=== PATIENT | female | born 1945 | race Caucasian/White ===

== ENCOUNTER 2020-04-05 11:59 | Outpatient (CLI) | payer MEDICARE, SELFPAY ==
[2020-04-05 12:38] LABS: Alanine Aminotransferase 31 U/L (4-35); Aspartate Amino Transferase 37 U/L (14-36)
== END 2020-04-05 12:00 | disposition home or self-care (01) ==
LOC: ANHLAB 12:05
PROVIDERS: PCP Family Medicine; Visit Provider Podiatrist Foot & Ankle Surgery
DX: B35.1 Tinea unguium (principal)
CPT/HCPCS: 36415; 84450; 84460

== ENCOUNTER 2020-07-05 11:01 | Outpatient (CLI) | payer MEDICARE, SELFPAY ==
[2020-07-05 11:50] LABS: Alanine Aminotransferase 22 U/L (4-35); Aspartate Amino Transferase 38 U/L (14-36)
== END 2020-07-05 11:02 | disposition home or self-care (01) ==
PROVIDERS: PCP Family Medicine; Visit Provider Podiatrist Foot & Ankle Surgery
DX: B35.1 Tinea unguium (principal)
CPT/HCPCS: 36415; 84450; 84460

== ENCOUNTER → 2021-10-26 10:57 | Outpatient (CLI) | payer MEDICARE, BC, SELFPAY ==
--- NOTE | ~2021-10-26 | DEXA_ITS ---
Bone Density Report Name: MICHELLE VAUGHAN Age: 76 Sex: Female Ethnicity: White Date of : 1945 Indication: postmenopausal; screening for osteoporosis; height loss; hysterectomy; Referring Provider: TESS PINEDA Study: Bone densitometry was performed. Exam Date: October 26, 2021 Accession number: [id number] Bone Density: Region BMD T-score Z-score Classification AP Spine (L1-L4) 0.798 -2.3 0.1 Osteopenia Femoral Neck (Left) 0.653 -1.8 0.3 Osteopenia Total Hip (Left) 0.725 -1.8 -0.1 Osteopenia Femoral Neck (Right) 0.765 -0.8 1.3 Normal Total Hip (Right) 0.702 -2.0 -0.2 Osteopenia Total Hip Mean 0.714 -1.9 -0.2 Osteopenia World Health Organization criteria for BMD impression classify patients as: Normal (T-score at or above -1.0), Osteopenia (T-score between -1.0 and -2.5), or Osteoporosis (T-score at or below -2.5). 10-year Fracture Risk(1): Major Osteoporotic Fracture 11% Hip Fracture 2.4% Reported Risk Factors: [place] (), Neck BMD=0.653, BMI=29.4 (1) FRAX(R) Version 3.08. Fracture probability calculated for an untreated patient. Fracture probability may be lower if the patient has received treatment. Clinical Information Provided by Patient: Has used the following medications: Vitamin D, Calcium, MTV Has the following medical conditions: Hysterectomy Patient maximum height was 66.5 Menopause Age: 30 No regular weight bearing exercise Drinks caffeinated beverages Onset of menses at age 15 Number of children 2 Impression: The patient has low bone mass, based on the Total Spine T-score. The patient has an estimated ten-year risk of hip fracture of 2.4% and an estimated ten-year risk of major fracture of 11%, based on the WHO FRAX algorithm. Discussion: BONE DENSITY IS LOW AT ONE OR MORE SKELETAL SITES. This patient's lowest T-score is low at one or more skeletal sites. It meets the World Health Organization's (WHO) criteria for ?low bone mass? (T-score between -1.0 and -2.5). The patient's 10-year risk of fracture as calculated by FRAX is less than the threshold where pharmacological therapy is recommended by the National Osteoporosis Foundation (NOF). However, all treatment decisions require clinical judgment and consideration of individual patient factors, including patient preferences, comorbidities, previous drug use, risk factors not captured in the FRAX model (e.g., frailty, falls, vitamin D deficiency, increased bone turnover, interval significant decline in bone density) and possible under or overestimation of fracture risk by FRAX. The patient should follow a healthful lifestyle (good nutrition with adequate calcium and vitamin D, and appropriate weight-bearing exercise). Follow-Up: Consider repeating this study in 2 to 3 years to reassess this patient's statu
--- NOTE | ~2021-10-26 | MM_ITS ---
EXAMINATION: MM screening gaurang BI w yosef HISTORY: Screening mammogram TECHNIQUE: Craniocaudal and mediolateral oblique 3-D tomosynthesis images were obtained and synthetic 2-D images were generated. CAD analysis was submitted and interpreted. COMPARISON: 05/09/2015 bilateral screening mammogram BREAST PARENCHYMAL COMPOSITION: There are scattered areas of fibroglandular density. FINDINGS: There is no evidence of suspicious mass, calcification, or architectural distortion to sugg est malignancy in either breast. There has been no suspicious interval change. IMPRESSION: 1. No mammographic evidence of malignancy. 2. Recommend routine screening mammography in one year. BI-RADS Category 1: Negative Reviewed, dictated and finalized at location A.
== END ==
PROVIDERS: PCP Family Medicine; Visit Provider Family Medicine
DX: Z12.31 Encounter for screening mammogram for malignant neoplasm of breast (principal); Z78.0 Asymptomatic menopausal state; M85.88 Other specified disorders of bone density and structure, other site; M85.852 Other specified disorders of bone density and structure, left thigh; M85.851 Other specified disorders of bone density and structure, right thigh
CPT/HCPCS: 77063; 77067; 77080

== ENCOUNTER 2022-01-24 11:47 | Outpatient (CLI) | payer MEDICARE, SELFPAY ==
[2022-01-24 19:00] LABS: Alanine Aminotransferase 29 U/L (6-35); Albumin Level 4.4 g/dL (3.5-5.1); Alkaline Phosphatase 108 U/L (38-126); Anion Gap 7 mmol/L (8-16); Aspartate Amino Transferase 39 U/L (14-36); Bilirubin,Total 0.6 mg/dL (0.2-1.3); Blood Urea Nitrogen 20 mg/dL (7-17); Calcium 10.5 mg/dL (8.4-10.2); Carbon Dioxide 32 mmol/L (22-30); Chloride 105 mmol/L (98-107); Estimated Glomerular Filt Rate > 60; Glucose 99 mg/dL (65-110); Potassium 3.4 mmol/L (3.4-5.0); Sodium 144 mmol/L (137-145)
== END 2022-01-24 11:48 | disposition home or self-care (01) ==
LOC: ANHGOSHLAB 11:49
PROVIDERS: PCP Family Medicine; Visit Provider Physician Assistant
DX: E83.52 Hypercalcemia (principal)
CPT/HCPCS: 36415; 80053

== ENCOUNTER 2024-08-29 13:35 | Outpatient (CLI) | payer MEDICARE, SELFPAY ==
--- NOTE | ~2024-08-29 | US_ITS ---
EXAMINATION: US venous doppler [facility] DATE: 08/29/2024 14:30 INDICATION: Left calf pain with a palpable cord TECHNIQUE: Grayscale ultrasound images without and with compression and Doppler ultrasound images of the left lower extremity veins were obtained. COMPARISON: None. FINDINGS: The visualized portions of left common femoral vein, profunda (deep) femoral vein, femoral vein, popl iteal vein, peroneal veins, posterior tibial veins, and greater saphenous vein outflow are patent. Noncompressibility and absence of flow is identified within the small saphenous vein in the area of c linical concern. IMPRESSION: No deep venous thrombosis. Superficial thrombophlebitis of the small saphenous vein in the left calf. Reviewed, dictated and finalized at location A.
--- OUTSIDE RECORDS SUMMARY | 2024-08-29 13:42 | XMS_ITS | Clinical Summary ---
Author Organization [facility] Address [address] [place] [address] Care Team Providers Care Department Clerk Name Role Phone Henny Drew MD Primary Care Provider [phone] Source Comments [facility],non-owned Affiliates and Associated Physician Practices is amultiple site organization consisting of ambulatory clinics and hospital sitesin [place], [place], [place] and [place]. This disclosure is being madepursuant to the Care Everywhere program and may not contain all information available regarding this patient. Last updated 17.[facility] Allergies Active Allergy Reactions Criticality Noted Date Comments Lisinopril Cough Low 09/10/2019 Valproic Acid Unknown Medium 09/10/2019 Medications * Be aware that medications may not be up to date on this document. Alwaysverify current medications with the patient. hydroCHLOROthiaz miller (MICROZIDE) 12.5 MG capsule Take 12.5 mg by mouth 2 times daily 2 12/04/2017 Active losartan (COZAAR) 50 MG tablet Take 50 mg by mouth 2 times daily 0 12/04/2017 Active metoprolol succinate XL 24hr (TOPROL XL) 50 MG tablet Take 50 mg by mouth once daily 0 12/04/2017 Active cetirizine (WAL-ZYR) 10 MG gel capsule Take 10 mg by mouth once daily Active Multiple Vitamins-Mineral s (CENTRUM SILVER ULTRA WOMENS PO) Take 1 tablet by mouth once daily Active omega 3 (FISH OIL) 1200 MG capsule Take 1,200 mg by mouth once daily Active magnesium 250 MG tablet Take 250 mg by mouth once daily Active cyanocobalamin (VITAMIN B-12) 1000 MCG tablet Take 1,000 mcg by mouth once daily Active Vitamin D3, cholecalciferol, 50 MCG (2000 UT) tablet Take 2,000 Units by mouth once daily Active Active Problems Problem Noted Date Diagnosed Date Family history of malignant neoplasm of other organs or systems 10/15/2015 Cystocele, lateral 03/24/2015 Slow transit constipation 03/24/2015 Lateral cystocele 03/24/2015 Slow transit constipation 03/24/2015 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 Dry eye syndrome 12/03/2014 Chorioretinal scar 06/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 06/09/2011 Family History Medical History Relation Name Comments Cancer Brother Cancer - Skin, Non Melanoma Father Hypertension Father Cancer - Skin, Non Melanoma Mother Hypertension Mother Allergy (Severe) Neg Hx CVA Neg Hx Cancer - Breast Neg Hx Cancer - Skin, Melanoma Neg Hx Eczema Neg Hx Hemophilia Neg Hx Psoriasis Neg Hx Rashes/Skin Problems Neg Hx Relation Name Status Comments Brother Father Mother Social History Tobacco Use Types Packs/Day Years Used Date Smoking Tobacco: Never Smokeless Tobacco: Never Alcohol Use Standard Drinks/Week Comments No 0 (1 standard drink = 0.6 oz pur e alcohol) Comments No Sex and Gender Information Value Date Recorded Sex Assigned at Not on file 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 Gender Identity Not on file Sexual Orientation Not on file Last Filed Vital Signs Vital Sign Reading Time Taken Comments Blood Pressure 140/82 09/10/2019 10:45 AM CDT Pulse 78 09/10/2019 10:45 AM CDT Temperature - - Respiratory Rate - - Oxygen Saturation - - Inhaled Oxygen Concentration - - Weight 81.6 kg (180 lb) 09/10/2019 10:45 AM CDT Height 167.6 cm (5' 6) 09/10/2019 10:45 AM CDT Body Mass Index 29.05 09/10/2019 10:45 AM CDT Plan of Treatment Health Maintenance Due Date Last Done Comments BONE DENSITY TESTING 1945 HEPATITIS C SCREENING 08/31/1965 DTAP/TDAP/TD VACCINES (1 - Tdap) 09/04/1966 PNEUMOCOCCAL VACCINE 50+ (1 of 1 - PCV) 09/04/1997 ZOSTER VACCINE (1 of 2) 09/04/1997 Respiratory Syncytial Virus (RSV) Vaccine Pt: or over 60 yrs (1 - 1-dose 75+ series) 09/04/2022 COVID-19 VACCINE (1 - 4-2 5 season) 2023 DEPRESSION SCREENING 02/20/2024 INFLUENZA VACCINE (Season Ended) 2024 11/21/2013, 02/19/2011, 02/19/2007 HEPATITIS B VACCINE Aged Out No longe r eligible based on patient's age to complete this topic HIB VACCINE Aged Out No longer eligi ble based on patient's age to complete this topic HPV VACCINE Aged Out No longer eligi ble based on patient's age to complete this topic MENINGOCOCCAL (Group B) VACCINE SHARED DECISION-MAKING Aged Out No longer eligible based on patient's age to complete this topic MENINGOCOCCAL GROUPS A/C/Y/W VACCINE Aged Out No longer eligible b ased on patient's age to complete this topic Insurance MEDICARE [facility] Care Teams Department Clerk Relationship Specialty Start Date End Date Henny Drew MD [address] [place] [address] PCP - General 10/18/17
--- OUTSIDE RECORDS SUMMARY | 2024-08-29 13:42 | XMS_ITS | Clinical Summary ---
Author Organization [facility] Address [address] [place] [address] Care Team Providers Care Principal Process Engineer Name Role Phone Henny Drew MD Primary Care Provider + Allergies Active Allergy Reactions Criticality Noted Date Comments Divalproex Unknown 12/22/2021 Lisinopril Cough Low 09/10/2019 Valproic Acid Unknown Medium 09/10/2019 Medications losartan (COZAAR) 50 mg tablet Take 1 tablet (50 mg total) by mouth 2 (two) times a day 05/17/2021 Active metoprolol XL (TOPROL-XL) 50 mg extended release tablet Take 1 tablet (50 mg total) by mouth daily 05/20/2021 Active cyanocobalamin (Vitamin B-12) 1,000 mcg tablet Take 1 tablet (1,000 mcg total) by mouth daily Active aspirin 81 mg enteric coated tablet Take 1 tablet (81 mg total) by mouth daily Active cholecalciferol (VITAMIN D-3) 2000 unit tablet Take 1 tablet (2,000 Units total) by mouth daily Active potassium chloride ER (KLOR-CON) 10 mEq CR tablet daily Active hydroCHLOROthia zide (HYDRODIURIL) 25 mg tablet Take 1 tablet (25 mg total) by mouth daily 06/10/2022 Active clobetasoL (TEMOVATE) 0.05 % external solution APPLY SOLUTION TO AFFECTED AREA ON AND AROUND EARS 1 TO TWICE DAILY FOR UP TO TWO WEEKS AT A TIME 04/17/2023 Active loratadine (CLARITIN) 10 mg tablet Take 1 tablet (10 mg total) by mouth daily Active Active Problems Problem Noted Date Diagnosed Date Acute eczematoid otitis externa of left ear 11/20 Chronic eczematous otitis externa of right ear 1 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 Chronic eczematous otitis externa of both ears 0 06/13/2021 Bilateral impacted cerumen 06/13/2021 Encounters Date Type Department Care Team Description 06/05/2024 11:15 AM CDT Office Visit [facility] Otolaryngology [place] [address] Cecilio Matthews II, MD Chronic eczematous otitis externa of both ears (Primary Dx); Bilateral impacted cerumen from Last 3 Months Surgical History Surgery Date Site/Laterality Comments MIDDLE EAR SURGERY HYSTERECTOMY Medical History Medical History Date Comments Hypertension HL (hearing loss) Tinnitus Allergies Family History Medical History Relation Name Comments No Known Problems Father No Known Problems Mother Relation Name Status Comments Father Mother Social History Tobacco Use Types Packs/Day Years Used Date Smoking Tobacco: Never Smokeless Tobacco: Never Tobacco Cessation:Counseling Given: Not Answered Comments Unknown Sex and Gender Information Value Date Recorded Sex Assigned at Not on file 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 Gender Identity Not on file Sexual Orientation Not on file Obstetrics History Last Filed Vital Signs Vital Sign Reading Time Taken Comments Blood Pressure - - Pulse - - Temperature - - Respiratory Rate 18 06/05/2024 10:57 AM CDT Oxygen Saturation - - Inhaled Oxygen Concentration - - Weight 70.3 kg (155 lb) 06/05/2024 10:57 AM CDT Height 167.6 cm (5' 6) 06/05/2024 10:57 AM CDT Body Mass Index 25.02 06/05/2024 10:57 AM CDT Plan of Treatment Health Maintenance Due Date Last Done Comments Depression Screening 1945 Fall Risk Assessment 1945 Hepatitis C Screening 1945 Osteoporosis Screening-Bone Density Scan 1945 Hepatitis B Screening 09/04/1965 Well Visit 65+ 09/04/2012 Zoster Vaccine (2 of 3) 02/21/2014 12/27/2013 DTaP/Tdap/Td Vaccine (2 - Td or Tdap) 02/19/2021 02/19/2011 Covid-19 Vaccine (2023-2 5 season) 2023 02/10/2021, 05/15/2020, 04/22/2020 Influenza Vaccine (Season Ended) 2024 11/26/2020, 10/22/2018, 11/26/2017, Additional history exists Pneumococcal vaccine 65+ Completed 11/04/2019, 04/2018 Insurance MEDICARE [facility] MEDICARE SUPPLEMENT Care Teams Principal Process Engineer Relationship Specialty Start Date End Date Henny Drew MD PCP - General Family Medicine 05/30/21
--- OUTSIDE RECORDS SUMMARY | 2024-08-29 13:42 | XMS_ITS | Referral Summary ---
Author Organization [address] Address [address] [place] [address] Care Team Providers Care Video Production Intern Name Role Phone Henny Drew MD Primary Care Provider + Encounters Date Type Department Care Team Description 06/05/2024 11:15 AM CDT Office Visit [facility] Otolaryngology [address] [place] [phone] Cecilio Matthews II, MD Chronic eczematous otitis externa of both ears (Primary Dx); Bilateral impacted cerumen from Last 3 Months Allergies Active Allergy Reactions Criticality Noted Date [...] ears 0 06/13/2021 Bilateral impacted cerumen 06/13/2021 Social History Tobacco Use Types Packs/Day Years Used Date Smoking Tobacco: Never Smokeless Tobacco: Never Tobacco Cessation:Counseling Given: Not Answered Comments Unknown Sex and Gender Information Value Date Recorded Sex Assigned at Not on file 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
== END 2024-08-29 13:36 | disposition home or self-care (01) ==
PROVIDERS: PCP Family Medicine; Visit Provider Family Medicine
DX: M79.89 Other specified soft tissue disorders (principal); I80.02 Phlebitis and thrombophlebitis of superficial vessels of left lower extremity
CPT/HCPCS: 93971